=== PATIENT | female | born 1990 | race Caucasian/White ===

== ENCOUNTER 2024-06-11 17:36 | Emergency (ER) | payer OTHER, SELFPAY ==
[2024-06-11 17:42] VITALS: BP 136/72; PULSE 73; RESP 16; TEMP 36.9; O2SAT 100; BMI 29.1
--- NOTE | 2024-06-11 18:28 | ED.GENADULT ---
HPI - General Adult General Chief complaint: Urogenital Problems, Female Stated complaint: pelvic back pain, nausea Time Seen by Provider: 06/11/24 17:56 Source: patient Mode of arrival: ambulatory Limitations: no limitations History of Present Illness HPI narrative: 33-year-old female with a positive test a few days ago, presents today several concerns. Patient states that she has been cramping and spotting for approximately 3 weeks. She will spot for a few days and then it stops and then it comes back again. She describes a lot of pressure in the suprapubic area that also comes and goes. She has discomfort in the left flank that comes and goes. She feels nauseated and has vomited on and off in the last 2 weeks. She denies fevers or chills. She is currently on amoxicillin for a dental implant. She is on day 5. She recently got back from [facility] where she was for the last several weeks. She denies cough. She does complain of a decreased appetite. She complains of constipation. She states that she was having dysuria but this has resolved. she complains of feeling achy all over including headache. 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 She denies other surgeries. Denies daily medication aside from the amoxicillin right now. Past medical history also significant for asthma, migraine headaches, back pain. 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 Unclear what it was. The patient states that she did not have follow-up. Related Data Home Medications ?Medication ?Instructions ?Recorded ?Confirmed amoxicillin .ROUTE 06/11/24 Allergies Allergy/AdvReac Type Severity Reaction Status Date / Time No Known Drug Allergies Allergy Verified 06/11/24 17:45 Review of Systems Status of ROS: Reports: 10 or more systems reviewed and unremarkable except as noted in History and below [facility] Social History Smoking Status: Never smoker How often do you have a drink containing alcohol: monthly or less AUDIT-C Alcohol total score: 1 Non-prescribed substance use: denies use Exam Narrative: Exam Narrative: Well-nourished well-developed patient in no acute distress. Alert and oriented. Answers questions appropriately. Mood and affect are appropriate. Thoughts are goal oriented and rational. No tangential or magical thinking noted. Patient speaks in full sentences without needing to catch her breath. HEENT: Normocephalic atraumatic. Extraocular muscles are intact. Conjunctivae are moist without any icterus noted. Moist mucous membranes. Posterior pharynx is normal. Neck is soft . Cardiovascular: Heart is regular rate and rhythm S1 and S2 are present without any murmurs. Lungs: Clear to auscultation bilaterally no wheezes rhonchi or rales are appreciated. Patient takes deep breaths without any discomfort. Abdomen: Soft and nondistended with normal bowel sounds. No guarding or rebound. No masses or organomegaly appreciated. she complains of mild tenderness in the suprapubic region, left lower quadrant region. She does not have CVA tenderness. Extremities: Bilateral lower extremities are without edema. Skin: Well perfused without any obvious rashes. Const: Vital Signs, click to edit/add: Vital Signs - 24 hr 06/11/24 17:42 06/11/24 20:40 Temperature 98.4 F Pulse Rate 77 Pulse Rate [Pulse Oximeter] 73 Respiratory Rate 16 16 Blood Pressure 114/81 Blood Pressure [Ri ght Upper Arm] 136/72 Pulse Oximetry 100 100 Oxygen Delivery Me thod Room Air Room Air Course Course ED Course: Differential diagnosis is broad includes , UTI, renal stone, influenza, complication of mediastinal mass?. Patient refused COVID/influenza swab. CBCs unremarkable. Normal chemistries. Normal LFTs. Normal lactate. Normal CRP. Normal lipase. Urine has trace blood, 2-5 RBCs. TSH normal. test positive. Ultrasound: No intrauterine visualized. Some free fluid visualized. HCG 367 consistent with at 1-2 weeks gestation. Vital Signs Vital signs: Initial Vital Signs Temperature 98.4 F 06/11/24 17:42 Temperature Source Temporal Artery Scan 06/11/24 17:42 Pulse Rate 73 06/11/24 17:42 Respiratory Rate 16 06/11/24 17:42 Blood Pressure 136/72 06/11/24 17:42 Blood Pressure Mean 93 06/11/24 17:42 Blood Pressure Position Sitting 06/11/24 17:42 Pulse Oximetry 100 06/11/24 17:42 Oxygen Delivery Method Room Air 06/11/24 17:42 Vital Signs Temperature 98.4 F 06/11/24 17:42 Pulse Rate 73 06/11/24 17:42 Respiratory Rate 16 06/11/24 17:42 Blood Pressure 136/72 06/11/24 17:42 Pulse Oximetry 100 06/11/24 17:42 Oxygen Delivery Method Room Air 06/11/24 17:42 Temperature 98.4 F 06/11/24 17:42 Pulse Rate 77 06/11/24 20:40 Respiratory Rate 16 06/11/24 20:40 Blood Pressure 114/81 06/11/24 20:40 Pulse Oximetry 100 06/11/24 20:40 Oxygen Delivery Method Room Air 06/11/24 20:40 Medications Administered Medications: Discontinued Medications Generic Name Dose Route Start Last Admin Trade Name Edwardq PRN Reason Stop Dose Admin Acetaminophen 1,000 mg 06/11/24 18:20 06/11/24 18:43 Acetaminophen 500 Mg Tablet PO 06/11/24 18:21 1,000 mg ONCE ONE Administration Medical Decision Making MDM Narrative Medical decision making narrative: 33-year-old female generally not feeling well. Workup today fairly unremarkable. Potential of 1-2 weeks gestation. Recommend that she follow up in 1-2 days time with primary to repeat hCG levels. Return to ER if pain becomes worse as there is a potential for ectopic . Lab Data Lab results reviewed: Yes I reviewed the patient's lab results Labs: Lab Results 06/11/24 06/11/24 06/11/24 Range/Units 18:35 18:51 21:04 WBC 9.37 (4.50-11.00) K/uL RBC 3.89 L (4.00-5.20) m/uL Hgb 11.4 L (12.0-16.0) gm/dL Hct 34.4 (33.0-51.0) % MCV 88 (80-100) fL MCH 29 (26-34) pg MCHC 33 (32-36) gm/dL RDW Coeff of Pieter 13.2 (11.5-15.5) % Plt Count 364 (140-440) K/uL Neut % (Auto) 62.0 (42.0-72.0) % Lymph % (Auto) 28.7 (20-44) % Summers % (Auto) 7.6 (0.0-11.0) % Eos % (Auto) 1.1 (0.0-7.0) % Baso % (Auto) 0.5 (0.0-3.0) % Neut # (Auto) 5.81 (1.7-7.0) K/uL Lymph # (Auto) 2.69 (0.90-2.90) K/uL Summers # (Auto) 0.70 (0.00-0.90) K/UL Eos # (Auto) 0.10 (0.00-0.50) K/uL Baso # (Auto) 0.05 (0.00-0.30) K/uL Abs Immat Gran (auto) 0.01 (0.00-0.30) K/uL Imm/Tot Granulo (auto) 0.1 % Sodium 137 (135-149) mmol/L Potassium 3.8 (3.6-5.1) mmol/L Chloride 103 (96-114) mmol/L Carbon Dioxide 23 (20-32) mmol/L Anion Gap 11 (7-15) mEq/L BUN 8 (5-24) mg/dL Creatinine 0.5 (0.5-1.5) mg/dL Estimated Creat Clear 134.86 Estimated GFR 129 ml/min Glucose 96 (60-115) mg/dL Lactate 0.5 (0.5-1.9) mmol/L Calcium 9.1 (8.4-10.6) mg/dL Total Bilirubin 0.8 (0.1-1.5) mg/dL Direct Bilirubin 0.3 (0.0-0.5) mg/dL AST 21 (12-35) U/L ALT 19 (4-35) U/L Alkaline Phosphatase 54 (40-150) U/L C-Reactive Protein 0.7 (0.5-1.0) mg/dL Total Protein 7.3 (6.0-8.3) g/dL Albumin 4.4 (3.3-5.0) g/dL Lipase 42 (23-300) U/L TSH 3.290 (0.270-4.20) uIU/mL HCG, Quant 367.68 mIU/mL Urine Color Yellow (Yellow) Urine Appearance Clear (Clear) Urine pH 6.0 (5.0-8.5) Ur Specific [place] 1.025 (1.000-1.030) Urine Protein Negative (Negative) Urine Glucose (UA) Negative (Negative) Urine Ketones Negative (Negative) Urine Blood Trace-intact A (Negative) Urine Nitrite Negative (Negative) Urine Bilirubin Negative (Negative) Urine Urobilinogen 0.2 (0.2-1.0) Ur Leukocyte Esterase Negative (Negative) Urine RBC 2-5 A (0-2) Urine WBC 0-2 (0-5) Ur Squamous Epith Cells Few (None-Few) Urine Bacteria None (None) Urine HCG, Qual POSITIVE H (Negative) Imaging Data US - abdomen: Attestation: I have reviewed the pertinent imaging results. Radiologist's impression: TECHNIQUE: Ultrasound OB pelvis transabdominal and transvaginal. Real-time blackburn-scale imaging of the pelvis was performed. COMPARISON: None. FINDINGS: Intrauterine gestation: No intrauterine gestational sac identified. Slightly irregular appearance of the endometrium, which measures up to 8 mm. Ovaries and adnexa: Right ovarian corpus luteum. Left ovary is unremarkable. No evidence of torsion. Suspicious pelvic fluid collections: Small volume fluid in the cul-de-sac. IMPRESSION: No definite intrauterine identified. No definite sonographic evidence of ectopic . Small volume pelvic free fluid. Findings are overall indeterminate. Short-term ultrasound follow-up in 10-14 days could be considered for more definitive evaluation Discharge Plan Discharge Clinical Impression: Abdominal cramping Patient Disposition: Home, Self-Care Condition: Stable Additional Instructions: Should follow-up 1st thing Thursday morning with a primary care provider or radio dispatcher to repeat hCG levels especially if you are still having cramping. HCG levels are consistent with a very early . It is unclear if the is ectopic or within the uterus. If your pain worsens, you should return to the emergency room immediately. Prescriptions: No Action amoxicillin .ROUTE Follow Up/Referrals: Provider,Not a Local [Primary Care Provider] - Stand Alone Forms: Network Chemistry Info Instructions
[2024-06-11] MEDS: ACETAMINOPHEN 500 MG TABLET 1000 MG PO (18:43)
[2024-06-11 18:46] LABS: Lactate* 0.5 mmol/L (0.5-1.9)
[2024-06-11 18:48] LABS: Basophils Absolute Auto 0.05 K/uL (0.00-0.30); Basophils Percent Auto 0.5 % (0.0-3.0); Eosinophils Percent Auto 1.1 % (0.0-7.0); Hematocrit 34.4 % (33.0-51.0); Hemoglobin* 11.4 gm/dL (12.0-16.0); Immature Granulocytes Abs Auto 0.01 K/uL (0.00-0.30); Immature Granulocytes Pct Auto 0.1 %; Lymphocytes Absolute Auto 2.69 K/uL (0.90-2.90); Lymphocytes Percent Auto 28.7 % (20-44); Mean Corpuscular HGB Conc 33 gm/dL (32-36); Mean Corpuscular Hemoglobin 29 pg (26-34); Mean Corpuscular Volume 88 fL (80-100); Monocytes Percent Auto 7.6 % (0.0-11.0); Neutrophils Absolute Auto 5.81 K/uL (1.7-7.0); Platelet Count* 364 K/uL (140-440); RDW Coefficient of Variation % 13.2 % (11.5-15.5); Red Blood Count 3.89 m/uL (4.00-5.20); White Blood Count* 9.37 K/uL (4.50-11.00)
--- OUTSIDE RECORDS SUMMARY | 2024-06-11 18:50 | XMS_ITS | Clinical Summary ---
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 Max acetaminophen dose: 4000mg in 24 hrs. 100 tablet 02/02/20 20 Active calcium carbonate (TUMS) 200 mg calcium (500 mg) chewable tabletIndications: Gastroesophageal reflux disease, unspecified whether esophagitis present Take 2 tablets by mouth 4 times daily if needed for Heartburn. 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 15 Patch 10/16/19 22 Active 25/iron fum/folic/dha (-1 ORAL) Take by mouth. Active oxyCODONE (ROXICODONE) 5 mg immediate release tablet Take 5 mg by mouth every 4 hours if needed. 02/23/20 22 Active docusate (COLACE) 100 mg capsuleIndications : (spontaneous vaginal delivery) Take 1 Capsule (100 mg) by mouth once daily. 100 Capsule 03/05/20 22 Active Breast Pump PurchaseIndication s: (spontaneous vaginal delivery),Care and examination of lactating mother Electric breast pump for home use. Gestational age at delivery: 40w1d weeks. Reason for need: Lactating mother. Length of need: 99 months (lifetime use) 1 Each 03/05/20 22 Active ibuprofen (ADVIL; MOTRIN) 600 mg tabletIndications: Neck swelling Take 1 Tablet (600 mg) by mouth 3 times daily if needed for Pain. Maximum of 3200 mg in 24 hours. 15 Tablet 05/19/19 23 Active predniSONE (DELTASONE) 20 mg tabletIndications: Exacerbation of asthma, unspecified asthma severity, unspecified whether persistent 60 mg Po x1, then 20 mg Po x 4 days 7 Tablet 02/17/20 23 Active albuterol HFA (PRO-AIR; VENTOLIN; PROVENTIL) 90 mcg/actuation inhalerIndications :Exacerbation of asthma, unspecified asthma severity, unspecified whether persistent Inhale 2 Puffs by mouth 4 times daily if needed for Shortness Of Breath. 2 Each 02/17/20 23 Active prochlorperazine (COMPAZINE) 10 mg tabletIndications: Abdominal pain, unspecified abdominal location Take 1 Tablet (10 mg) by mouth every 8 hours if needed for Nausea/Vomiting. 15 Tablet 05/13/19 24 Active famotidine (PEPCID) 20 mg tabletIndications: Abdominal pain, unspecified abdominal location Take 1 Tablet (20 mg) by mouth two times daily. 40 Tablet 05/13/19 24 Active HYDROcodone-acetam inophen (5-325 mg/tablet)Indicati ons:Abdominal pain, unspecified abdominal location Take 1 Tablet by mouth every 6 hours if needed for Pain. Max acetaminophen dose: 4000 mg in 24 hrs. 8 Tablet 05/13/19 24 Active metoclopramide HCl (REGLAN) 10 mg tabletIndications: Nausea vomiting and diarrhea Take 1 Tablet (10 mg) by mouth every 6 hours if needed for Nausea/Vomiting (headache). 15 Tablet 09/07/19 24 Active ondansetron (ZOFRAN ODT) 8 mg disintegrating tabletIndications: Vomiting and diarrhea Place 1 Tablet (8 mg) on the tongue two times daily. 15 Tablet 12/06/19 24 Active Active Problems Problem Noted Date Diagnosed Date Normal labor 03/04/2022 Supervision of other normal , antepartu m 03/04/2022 Grand multiparity 03/04/2022 (spontaneous vaginal delivery) 03/04/2022 Care and examination of lactating mother 022 Back pain 06/04/2020 Lumbar radiculopathy 06/04/2020 Migraine 07/21/2017 Depression Abdominal pain Resolved Problems Problem Noted Date Diagnosed Date Resolved Date Right lower quadrant pain 06/04/2020 Normal labor 02/01/2020 03/04/2022 (normal spontaneous vaginal delivery) 02/01/2020 03/04/2022 care and examinat ion of lactating mother 02/01/2020 03/04/2022 Depression affecting 09/27/2019 03/04/2022 Overview (02/01/2020): EPDS = 22 at 21 weeks, no SI/HI. 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 09/15/2012 09/18/2018 Nausea with vomiting 08/04/2012 013 Gastroenteritis, acute 08/04/201209/15 Urine ketones 08/04/2012 09/15/2012 uterine contractions, antepartum 08/04/2012 09/15/2012 Asymptomatic bacteriuria in , unspecified as to episode of care 08/04/20122012 Heartburn 08/04/2012 09/15/2012 UTI in 07/21/2012 09/15/2012 Immunizations Immunization Administration Dates Next Due MMR 09/16/2012 Family History Medical History Relation Name Comments Migraines Mother Relation Name Status Comments Mother Social History Tobacco Use Types Packs/Day Years Used Date Smoking Tobacco: Passive Smo ke Exposure - Never Smoker Smokeless Tobacco: Never Tobacco Cessation:Counseling Given: No Comments:not during the Alcohol Use Standard Drinks/Week Comments Not Currently 0 (1 standard drink = 0.6 oz pure alcohol) every other weekend. Reports she does not drink while Social Connections Answer Date Recorded Frequency of Communication with Friends and Fami ly Not on file 07/15/2022 Interpersonal Safety Answer Date Record ed Are you being hit, kicked, p ushed or yelled at (see row info)? 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 Gender Identity Not on file Sexual Orientation Not on file Obstetrics History Para Term AB IAB SAB Ectopic Multiple Livin g Live Births 7 5 5 0 2 1 1 0 0 5 5 Date Outcome GA Total Labor Labor/2nd/3rd Weight Sex Type Anes PTL Claudia A1 A5 Name Clin 2009 Term 41w 3d 3.32 kg (7 lb 5 oz) M Vag-S pont None N Livin g K[place] [place] 40w 0d 2.96 kg (6 lb 8.4 oz) F Vag Livin g 9 9 PAULSON, BABY GIRL Delivery Location:[facility] 2014 IAB 8 SAB 2018 Term 40w 0d F Vag-S pont Epidur al Livin g 2019 Term 40w 0d 3.11 kg (6 lb 13.7 oz) M Vag Epidur al N Livin g Complications:None 2021 Term 40w 1d 2h 44m 2h 33m/0h 04m/0h 07m 3.51 kg (7 lb 11.8 oz) F Vag-S pont None Livin g 8 9 PAULSON, BG Joann Deshpande MD Complications:None Delivery Location:Hospital ( [facility]) Last Filed Vital Signs Vital Sign Reading Time Taken Comments Blood Pressure 98/64 12/06/2023 10:37 PM CDT Pulse 91 12/06/2023 10:37 PM CDT Temperature 36.9 C (98.5 F) 12/06/2023 8:52 PM CDT Respiratory Rate 16 12/06/2023 8:52 PM CDT Oxygen Saturation 100% 12/06/2023 10:37 PM CDT Inhaled Oxygen Concentration - - Weight 79.4 kg (175 lb) 12/06/2023 8:52 PM CDT Height 160 cm (5' 3) 12/06/2023 8:52 PM CDT Body Mass Index 31 12/06/2023 8:52 PM CDT Plan of Treatment Health Maintenance Due Date Last Done Comments Tdap 09/27/2003 Depression screening for age 12+ 2004 Hepatitis C screening for ag e 18-79 2010 Tetanus booster 2012 Pap test for age 21-65 2013 BMI (ht and wt on same day) for age 18+ 11/22/2016 11/23/2015 (IA) Influenza for age 9-49 12/06/2023 COVID-19 vaccine series ( season) 2023 05/27/2021, 04/18/2021 HIV for age 15-65 Completed 09/09/2023, 10/03/2021 Pneumococcal series for age 6-49 Aged Out No longer eligible b ased on patient's age to complete this topic Procedures Procedure Name Priority Date/Time Associated Diagnosis Comments RAPID HIV SCREEN STAT 09/09/2023 2:49 PM CDT from Last 3 Months or Most Recently Relevant to Health Maintenance Results * RAPID HIV SCREEN (09/09/2023 2:49 PM CDT) RAPID HIV SCREEN Non-React larry Non-Reactiv e, Invalid 09/09/2023 4:17 PM CDT [facility] Comment:A NONREACTIVE test r esult means that HIV-1 or HIV-2 antibodies and HIV-1 p24 antigen were not detected in the specimen. Blood BLOOD SPECIMEN / Unknown IV Start / Unknown 09/09/2023 2:49 PM CDT 09/09/2023 3:03 PM CDT Luiz Hylton DO CHEMISTRY Final Result [facility] [address] [place] [address] from Last 3 Months or Most Recently Relevant to Health Maintenance Insurance [employer] [facility] [place] Advance Directives * Full Code (Latest Code Status on File) Date Activated Date Inactivated Comments 06/03/2022 10:29 AM 06/03/2022 2:10 PM Question Answer Comments Code Status Discussion: Not Discussed * Full Code Date Activated Date Inactivated Comments 06/03/2022 10:28 AM 06/03/2022 10:29 AM Question Answer Comments Code Status Discussion: Not Discussed * Full Code Date Activated Date Inactivated Comments 03/04/2022 1:16 PM 03/05/2022 4:48 PM Question Answer Comments Code Status Discussion: Reviewed Preferences * Full Code Date Activated Date Inactivated Comments 06/04/2020 9:20 PM 06/07/2020 4:26 PM Question Answer Comments Code Status Discussion: Discussed * Full Code Date Activated Date Inactivated Comments 02/01/2020 8:51 AM 02/02/2020 5:49 PM Question Answer Comments Code Status Discussion: Not Discussed Care Teams Rubber Belt Splicer Relationship Specialty Start Date End Date Art Navarro MD [address] [place] [address] PCP - General Family Practice 06/02/22 Chacha Whyte CNM [address] [facility] [address] [place], [place] [address] Certified Nurse Internal Control Consultant 08/03/12
--- OUTSIDE RECORDS SUMMARY | 2024-06-11 18:50 | XMS_ITS | Encounter Summary ---
Author Organization [employer] [facility] [employer] Address [address] [place] [address] Care Team Providers Care Director Of Planning Name Role Phone Octaviano Her MD Primary Care Provider [phone] [phone] Reason for Visit * Procedure/Equipment (Routine) - Closed Specialty Diagnoses / Procedures Referred By Contac t Referred To Contact Diagnoses Acute bilateral low back pain with bilateral sciatica (HRC) Procedures MR Lumbar Spine WO IV Cont Xiomara Gabriel APRN, BOTTOM WORKER [address] [place] [address] Phone: tel: fax: Referral ID Status Reason Start Date Expiration Date Visits Re quested Visits Authorized [id number] Closed 05/10/2024 11/06/2024 1 1 Encounter Details Date Type Department Care Team (Latest Contact Info) Description 05/16/2024 1:00 PM SAFETY INTERN Ancillary Procedure [facility] [address] [place] [address] Xiomara Gabriel APRN, BOTTOM WORKER [address] [place] [address] Acute bilateral low back pain with bilateral sciatica (HRC) Social History Tobacco Use Types Packs/Day Years Used Date Smoking Tobacco: Never Smokeless Tobacco: Never Alcohol Use Standard Drinks/Week Comments Not Currently 0 (1 standard drink = 0.6 oz pur e alcohol) occas Humiliation, Afraid, Rape, and Kick questionnair e Answer Date Recorded Fear of Current or Ex-Partner Not on file Emotionally Abused Not on file 05/03/2023 Within the last year, have y ou been kicked, hit, slapped, or otherwise physically hurt by your partner or ex-partner? No 05/03/2023 Within the last year, have y ou been raped or forced to have any kind of sexual activity by your partner or ex-partner? No 05/03/2023 PHQ-2 Answer Date Recorded PHQ-2 Score 4 05/02/2024 Hunger Vital Sign Answer Date Recorded Within the past 12 months, y ou worried that your food would run out before you got the money to buy more. Never true 02/22/20 23 Within the past 12 months, t he food you bought just didn't last and you didn't have money to get more. 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 on file Not on file Not on file documented as of this encounter Plan of Treatment Not on file documented as of this encounter Procedures Procedure Name Priority Date/Time Associated Diagnosis Comments MR LUMBAR SPINE WO IV CONT Routine 05/16/2024 1:16 PM SAFETY INTERN Acute bilateral low back pain with bilateral sciatica (HRC) documented in this encounter Results * MR Lumbar Spine WO IV Cont (05/16/2024 1:16 PM SAFETY INTERN) Anatomical Region Laterality Modality Spine, L-Spine, Skeletal, MSK Ma gnetic Resonance 05/16/2024 12:4 6 PM SAFETY INTERN Impressions 05/17/2024 11:08 AM SAFETY INTERN Mild progression of degenerative findings at L4-L5 and L5-S1 as above without high-grade spinal canal or neural foraminal stenosis. Comment: Many lumbar spine MRI findings are so common that while we may have reported their presence, they must be interpreted with caution and in the context of the clinical situation. The frequency of these findings in adults WITHOUT low back pain increases with age and are as follows: disk degeneration (37-96%), disk height loss (24-84%), disk bulge (30-84%), disk protrusion (29-43%), annular fissure (19- 29%), and facet degeneration (4-83%). Frequency percentages adapted from Dulce W, Silas PH, Jessica B, et al. AJNR AM J Neuroradiol 2015:36:811-16. Narrative 05/17/2024 11:08 AM SAFETY INTERN INDICATION: LBP with sciatica. TECHNIQUE: Routine non-contrast MRI of the lumbar spine. COMPARISON: Lumbar spine MRI 03/16/2019 FINDINGS: Five lumbar-type vertebral bodies. The conus medullaris terminates at the level of T12. Normal cord signal. No acute compression fracture or suspicious osseous lesion. Mild to moderate degenerative disc changes at L5-S1 with mild type I degenerative marrow changes. Mild degenerative disc changes at L4-L5. Slightly increased lipid poor benign hemangioma within the left sacral ala. Grade 1 retrolisthesis at L5-S1. Straightening of the lumbar lordosis. Level by level: T12-L1: No spinal canal or neural foraminal stenosis. L1-2: No spinal canal or neural foraminal stenosis. L2-3: No spinal canal or neural foraminal stenosis. L3-4: No spinal canal or neural foraminal stenosis. L4-5: Disc bulge with annular fissure and central disc protrusion slightly eccentric to the left. Mild facet arthropathy. Mild to moderate spinal canal stenosis. Lateral recess stenosis slightly greater on the left with mild mass effect upon the descending L5 nerve roots. Mild left and slight right foraminal stenosis. L5-S1: Grade 1 retrolisthesis. Posterior disc-osteophyte complex and small central disc protrusion. Mild facet arthropathy. Mild canal stenosis. Moderate left and mild right foraminal stenosis. Procedure Note Trae Gil MD - 05/17/2024 INDICATION: LBP with sciatica. TECHNIQUE: Routine non-contrast MRI of the lumbar spine. COMPARISON: Lumbar spine MRI 03/16/2019 FINDINGS: Five lumbar-type vertebral bodies. The conus medullaristerminates at the level of T12. Normal cord signal. No acute compressionfracture or suspicious osseous lesion. Mild to moderate degenerative discchanges at L5-S1 with mild type I degenerative marrow changes. Milddegenerative disc changes at L4-L5. Slightly increased lipid poor benignhemangioma within the left sacral ala. Grade 1 retrolisthesis at L5-S1.Straightening of the lumbar lordosis. Level by level: T12-L1: No spinal canal or neural foraminal stenosis. L1-2: No spinal canal or neural foraminal stenosis. L2-3: No spinal canal or neural foraminal stenosis. L3-4: No spinal canal or neural foraminal stenosis. L4-5: Disc bulge with annular fissure and central disc protrusion slightlyeccentric to the left. Mild facet arthropathy. Mild to moderate spinalcanal stenosis. Lateral recess stenosis slightly greater on the left withmild mass effect upon the descending L5 nerve roots. Mild left and slightright foraminal stenosis. L5-S1: Grade 1 retrolisthesis. Posterior disc-osteophyte complex and smallcentral disc protrusion. Mild facet arthropathy. Mild canal stenosis.Moderate left and mild right foraminal stenosis. IMPRESSION Mild progression of degenerative findings at L4-L5 and L5-S1 as abovewithout high-grade spinal canal or neural foraminal stenosis. Comment: Many lumbar spine MRI findings are so common that while we mayhave reported their presence, they must be interpreted with caution and inthe context of the clinical situation. The frequency of these findings inadults WITHOUT low back pain increases with age and are as follows: diskdegeneration (37-96%), disk height loss (24-84%), disk bulge (30-84%),disk protrusion (29-43%), annular fissure (19- 29%), and facet degeneration(4-83%). Frequency percentages adapted from Dulce W, Silas PH, Jessica B, etal. AJNR AM J Neuroradiol 2015:36:811-16. us Xiomara Gabriel AUDIT CONSULTANT, BOTTOM WORKER RAD MRI Laura l Result documented in this encounter Visit Diagnoses Diagnosis Acute bilateral low back pain with bilateral sciatica (HRC) documented in this encounter Care Teams Director Of Planning Relationship Specialty Start Date End Date Octaviano Her MD [address] [facility] [place] [address] PCP - General Family Practice 02/05/24 documented as of this encounter
--- OUTSIDE RECORDS SUMMARY | 2024-06-11 18:51 | XMS_ITS | Encounter Summary ---
Author Organization [facility] Address [address] [place] [address] Care Team Providers Care Facility Environmental Technician Name Role Phone Octaviano Her MD Primary Care Provider [phone] Reason for Visit * Reason Onset Date Comments No Show 05/05/2024 Encounter Details Date Type Department Care Team (Latest Contact Info) Description 05/05/2024 3:40 PM RECORD LIBRARIAN Telemedicine [facility] [address] [facility] [place] [id number] Octaviano Her MD [address] [place] [address] Encounters for administrative purposes (Primary Dx) Social History Tobacco Use Types Packs/Day Years [...] Recor ded Last EPDS Total Score 9 04/21/2022 Last EPDS Self Harm Result 0-->never 04/21 Comments No Sex and Gender Information Value Date Recorded Sex Assigned at Not on file Legal Sex Female 10:09 AM RECORD LIBRARIAN Gender Identity Not on file Sexual Orientation Not on file 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 Not on file Not on file documented as of this encounter Progress Notes * Octaviano Her MD - 05/05/2024 3:40 PM CST Patient was called/texted 3 times and was unable to be reached to complete their video/phone visit.Patient will need to reschedule an appointment RD LIBRARIAN documented in this encounter Plan of Treatment Not on file documented as of this encounter Visit Diagnoses Diagnosis Encounters for administrative purposes- Primary Encounters for unspecified administrative purpose documented in this encounter Care Teams Facility Environmental Technician Relationship Specialty Start Date End Date Octaviano Her MD [address] [facility] [place] [address] PCP - General Family Practice 02/05/24 documented as of this encounter
--- OUTSIDE RECORDS SUMMARY | 2024-06-11 18:51 | XMS_ITS | Encounter Summary ---
Author Organization [employer] Address [address] [place] [address] Care Team Providers Care Reversal Print Inspector Name Role Phone Octaviano Her MD Primary Care Provider [phone] Reason for Referral * Consult/Transfer Care (Routine) - New Request Specialty Diagnoses / Procedures Referred By Contac t Referred To Contact Diagnoses Acute bilateral low back pain with bilateral sciatica (HRC) Xiomara Gabriel APRN, TECHNICAL ADMINISTRATIVE ASSISTANT [address] [place] [address] Phone: tel: fax: Referral ID Status Reason Start Date Expiration Date V isits Requested Visits Authorized [id number] New Request 05/02/2024 08/01/2025 1 1 Scheduling Instructions Your clinician has recommended an appointment with [facility]. You can quickly make your appointment online at [email or web address]. You can also call [phone] for help scheduling your appointment. We suggest you call your health insurance company about your coverage and benefits for this appointment. Question Answer Appointment Urgency? Non-Urgent Reason for visit? LBP w/sciatica; MRI ordered R FINISHER * Procedure/Equipment (Routine) - Closed Specialty Diagnoses / Procedures Referred By Contac t Referred To Contact Diagnoses Acute bilateral low back pain with bilateral sciatica (HRC) Procedures MR Lumbar Spine WO IV Cont Xiomara Gabriel APRN, AMNA [address] [place] [address] Phone: tel: fax: Referral ID Status Reason Start Date Expiration Date Visits Re quested Visits Authorized [id number] Closed 05/10/2024 11/06/2024 1 1 R FINISHER Encounter Details Date Type Department Care Team (Late st Contact Info) Description 05/02/2024 1:30 PM FLOOR FINISHER Telemedicine [facility] Care [address] [place] [id number] Xiomara Gabriel APRN, CNP [address] [place] [address] Acute bilateral low back pain with bilateral sciatica (HRC) (Primary Dx); Spasm of muscle; Anxiety (HRC); Recurrent depression (HRC) Social History Tobacco Use Types Packs/Day [...] on file Legal Sex Female 10:09 AM FLOOR FINISHER Gender Identity Not on file Sexual Orientation Not on file 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 Ibuprofen is an anti-inflammatory drug and can be very helpful if taken consistently for short periods of time. During use, reduce the amount of caffeine, alcohol, and other other stomach irritants to reduce therisk of stomach upset. If you have any side effects, let us know. Contraindications to use include kidney issues, heart disease, heart failure, or unmanaged blood pressure, low platelets, allergy, or concurrent blood thinner use. Gabapentin is used for a variety of conditions, but is very helpful for nerve pain and can also assist with anxiety. Swallow tablets with a full glass of water and take with food. Avoid antacids within 2 hours of taking gabapentin. More common side effects can include feeling tired, dizzy, headaches, nausea, movement, or eye issues. Side effects are less with lower doses and mild side effects such as fatigue often improve after 1-2 weeks on the medication. You should have your kidney function monitored periodically on gabapentin. Read the drug insert for all possible drug information. Please start only with evening dosing to get used to the medication. Methocarbamol (Robaxin) is a muscle relaxant. Generally, the medication is well- tolerated but if you experience an allergic reaction, fatigue, heart symptoms, confusion, yellow skin or eyes, neurological symptoms, changes in vision, or other concerning side effects, stop the medication and notify your provider immediately. Possible side effects also include nausea, headache, or dizziness. This medication can be taken with or without food. Do not use this medication with alcohol. Caution with using this medication with other medications that can cause drowsiness such as allergy medication, prescription pain medication, sedatives, or cold medication. Make sure you know how you react to this medicine before you drive, use machines, or do anything else that could be dangerous if you are not alert. Take 750mg three times a day as needed. The dose can range from 500-1500mg 4x/daily as needed if adjustments need to be made. Other treatments: Future options to try include topical pain creams (Biofreeze, [place], Capsacin cream, Aspercreme) Advise abdominal strengthening exercises and focus on hamstring flexibility. Advise good posture in seated position, lumbar support, and getting up to walk around throughout the day. Avoid bed rest; but limit twisting and bending (especially when lifting). Ensure good supportive footwear. Use ice for any inflammation; then switch to heat to improve blood flow to the area. If your symptoms do not improve or worsen, seek re-evaluation. Physical Therapy is advised. Your clinician has recommended an appointment with [facility]. You can quickly make your appointment online at [email or web address]. You can also call [phone] for help scheduling your appointment. We suggest you call your [facility] insurance company about your coverage and benefits for this appointment. If concerning symptoms such as inability to control bowel or bladder, numbness or radiation down leg(s), muscle weakness, fever, weight loss, or worsening symptoms, seek immediate treatment. Your have been referred to PM&R for after your MRI to discuss results in-depth. You can quicklymake your appointment online at [email or web address]. You can also call [phone] for help scheduling your appointment. We suggest you call your health insurance company about your coverageand benefits for this appointment. [facility] is another option if sooner concerns/worsening s ymptoms so exam can be completed. R FINISHER R FINISHER R FINISHER * Attachments The following attachments cannot be sent through Care Everywhere. * Low Back Pain: General Info (Turkish) documented in this encounter Progress Notes * Xiomara Gabriel APRN, AMNA - 05/02/2024 1:30 PM CST Primary Care Virtualist Note This visit completed virtually by: Video. Subjective Tennille Rodriguez is a 33 y.o. female who wishes to discuss Back pain, been going on for 3 yrs has done PT , been ok for a year, and Dec pain came back. Asking for a referral for a specialist . 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 She had sciatica with this. 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 In March, she travelled to [facility] and had difficulty getting off the plane, but did not have a particular new injyry. Her pain is worse with sitting. Every time she sits, she gets pain in her buttocks. Left leg will sometimes go with crossing legs. Last MRI of lumbar region was 2020. Has had MRI previously; no new contraindications. She did get anxiety during procedure last time. LMP: 3 weeks ago; not sexually active PHQ-9=12. She just got out of a difficult relationship HRC gap: Depression, mediastinal mass s/p resection, asthma My chart: Active as of 03/17/24 PDMP reviewed; no concerns Objective She has dropped from 220->165 with increased gym workouts and eating better. She is feeling better from this. General Appearance: alert, well appearing, and in no apparent distress Psychiatric: affect/mood normal and normal judgement/insight Assessment/Plan Diagnoses and all orders for this visit: Acute bilateral low back pain with bilateral sciatica (HRC) - MR Lumbar Spine WO IV Cont; Future - methocarbamol (ROBAXIN) 750 MG tablet; Take 1 Tablet (750 mg) by mouth three times a day as needed. - gabapentin (NEURONTIN) 300 MG capsule; Take 1 Capsule (300 mg) by mouth three times a day as needed. - Physical Medicine & Rehab Consult-Adult Spasm of muscle - methocarbamol (ROBAXIN) 750 MG tablet; Take 1 Tablet (750 mg) by mouth three times a day as needed. Anxiety (HRC) - diazePAM (VALIUM) 5 MG tablet; Pt to bring with to appt. Do not take prior to arrival. MRI staff will instruct when to take med. Recurrent depression (HRC) MDM: Patient with history of LBP injury, ongoing work in a high-risk profession, and new/worsened symptoms. Will proceed with MRI and then follow-up with PM&R. She will make an appt with prior therapist for MH. If ongoing MH concerns and would like to consider pharmacotherapy, she will make another visit with me or her PCP. See Patient Instruction section for further education/details from this appointment. Follow-up plan: Pt to call clinic if not tolerating medication or does not feel medication is working or with worsening symptoms; Urgent Care or Emergency Room if indicated. It was a pleasure to meet with Tennille today. Tennille verbalizes understanding and is in agreement with plan. R FINISHER documented in this encounter Plan of Treatment Scheduled Referrals Name Type Priority Associated Diagnoses Orde r Schedule Physical Medicine & Rehab Consult-Adult Referral Routine Acute bilateral low back pain with bilateral sciatica (HRC) Ordered: 05/02/2024 documented as of this encounter Results * MR Lumbar Spine WO IV Cont (05/16/2024 1:16 PM FLOOR FINISHER) Anatomical Region Laterality Modality Spine, L-Spine, Skeletal, MSK Ma gnetic Resonance 05/16/2024 12:4 6 PM FLOOR FINISHER Impressions 05/17/2024 11:08 AM FLOOR FINISHER Mild progression of degenerative findings at L4-L5 [...] (4-83%). Frequency percentages adapted from Dulce W, Lujuan pablo PH, Jessica B, et al. AJNR AM J Neuroradiol 2015:36:811-16. Narrative 05/17/2024 11:08 AM FLOOR FINISHER INDICATION: LBP with sciatica. TECHNIQUE: Routine non-contrast [...] degeneration(4-83%). Frequency percentages adapted from Dulce W, Lujuvenciomer PH, [place] B, etal. AJNR AM J Neuroradiol 2015:36:811-16. us Xiomara Gabriel AUTOMOTIVE MANUFACTURER, TECHNICAL ADMINISTRATIVE ASSISTANT RAD MRI Laura l Result documented in this encounter Visit Diagnoses Diagnosis Acute bilateral low back pain with bilateral sciatica (HRC)- Primary Spasm of muscle Anxiety (HRC) Anxiety state, unspecified Recurrent depression (HRC) Major depressive disorder, recurrent episode, unspecified Acute bilateral low back pain with bilateral sciatica (HRC) documented in this encounter Care Teams Reversal Print Inspector Relationship Specialty Start Date End Date Octaviano Her MD [address] [place] [address] PCP - General Family Practice 02/05/24 documented as of this encounter
--- OUTSIDE RECORDS SUMMARY | 2024-06-11 18:51 | XMS_ITS | Clinical Summary ---
Author Organization [facility] Address [address] [place] [address] Care Team Providers Care [employer] Member Name Role Phone Octaviano Her MD Primary Care Provider [phone] Source Comments You are receiving this document as you are listed as the primary care provider,follow-up provider, or the patient has been referred to you for consultation.This is in compliance with the Medicare andMedicaid EHR Incentive Program,which states Providers who transition their patient to another setting of careor provider of care or refers their patient to another provider of care shouldprovide summary care record for each transition of care or referral. [facility] Allergies Active Allergy Reactions Criticality Noted Date Comments Prednisone Other, see comments 02/21/2023 States very agitated after done in ER Medications * This document contains information received from the source organization and may not represent a complete record from that organization. ALBUterol sulfate HFA 108 (90 Base) MCG/ACT inhaler Inhale 1-2 Puffs every 4 hours as needed for Wheezing. 1 Each 5 1 Active acetaminophen (TYLENOL) 500 MG tablet Take 2 Tablets (1,000 mg) by mouth every 6 hours. Maximum acetaminophen dose is 4000 mg in 24 hours 100 Tablet 11 3 Active diazePAM (VALIUM) 5 MG tabletIndicati ons:Anxiety (HRC) Pt to bring with to appt. Do not take prior to arrival. MRI staff will instruct when to take med. 1 Tablet 5 Active methocarbamol (ROBAXIN) 750 MG tabletIndicati ons:Acute bilateral low back pain with bilateral sciatica (HRC),Spasm of muscle Take 1 Tablet (750 mg) by mouth three times a day as needed. 30 Tablet 2 5 Active gabapentin (NEURONTIN) 300 MG capsuleIndicat ions:Acute bilateral low back pain with bilateral sciatica (HRC) Take 1 Capsule (300 mg) by mouth three times a day as needed. 90 Capsule 5 05/02/19 26 Active Active Problems Problem Noted Date Diagnosed Date Elevated LFTs 09/12/2023 Mild intermittent asthma without complication Class 1 obesity due to exces s calories without serious comorbidity with body mass index (BMI) of 31.0 to 31.9 in adult 09/12/2023 Unintentional weight loss of more than 2% body weight within 1 week 09/12/2023 Orthostatic dizziness 09/12/2023 History of migraine 09/12/2023 Acute hypokalemia 09/12/2023 Hypomagnesemia 09/12/2023 Abnormal LFTs 09/12/2023 Campylobacter gastroenteritis 09/11/2023 Nausea, vomiting, and diarrhea 09/11/2023 Abdominal cramping, generalized 09/11/2023 Blurry vision 03/01/2023 Subjective visual disturbance of right eye 03/01 Infection of bronchogenic cyst 02/26/2023 Elevated transaminase level 02/21/2023 Pain 02/21/2023 Not immune to rubella 11/29/2021 Bilateral sciatica 01/14/2021 Hair loss 01/14/2021 Recurrent major depressive disorder, in full rem ission 01/14/2021 Iron deficiency anemia 07/17/2020 Recurrent depression 07/16/2020 Anxiety 07/16/2020 Migraine 07/21/2017 Sciatic nerve pain, right Resolved Problems Problem Noted Date Diagnosed Date Resolved Date Dehydration 09/12/2023 03/12/2024 Supervision of other normal , antepartum 11/29/2021 05/13/2022 Obesity in 11/29/2021 023 Limited care in second trimester 11/29/2021 05/13/2022 Lumbar radicular pain 02/19/20212021 Lumbar pain 01/14/2021 08/05/2021 Careplan: [facility] 10/03/2019 04/16/2020 Overview (10/03/2019): This patient is enrolled in the [facility] Program. The program provides patients with support, education, referrals and resources during their . Reason for enrollment: Psychosocial support Next urine drug screen: NA For more information, please contact Reina Medina, [facility] Specialist, at [phone]. Depression affecting 09/27/2019 06/08/2020 Overview (09/27/2019): EPDS = 22 at 21 weeks, no SI/HI. Obesity affecting in third trimester 08/30/2019 06/08/2020 Herniated intervertebral disc of lumbar spine 08/30/1905/26/2019 Atypical squamous cells of u ndetermined significance (ASCUS) on Papanicolaou smear of cervix 08/30/2019 11/20/2020 Overview (09/12/2019): 2017 CCS Review: History: 2017: ASCUS (age 25) 2020: NILM Plan, per ASCCP guidelines: Repeat cytology in 12 months (08/2020) Anemia affecting in third trimester 08/30/1906/08/2020 Overview (08/30/2019): hgb 10.5 at NOB at 17 weeks Chlamydia trachomatis infect ion in mother during , antepartum 05/13/2018 11/11/2018 Careplan: [facility] 05/13/2018 10/18/2018 Overview (05/13/2018): This patient is enrolled in the [facility] Program. The program provides patients with support, education, referrals and resources during their . 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 Oligohydramnios, delivered 09/15/2012 0 06/08/2015 Echogenic focus of bowel of fetus affecting antepartum care of mother 08/27/2012 05/23/2014 Overview (11/26/2016): Echogenic focus of bowel of affecting antepartum care of mother Anemia 07/21/2012 07/21/2017 Rubella in 07/07/2012 017 Echogenic focus of heart of fetus affecting antepartum care of mother 05/31/2012 08/27/2012 Overview (11/08/2015): Referred for LIIUS Intrauterine , 25+6/7 weeks gestation Echogenic intracardiac focus Otherwise nrmal anatomy Normal echocardiogram No additional ultrasound markers of aneuploidy Normal doppler flow study Adequate growth for gestational age Encounter for supervision of normal in multigravida 05/22/2012 05/23/2014 Overview (11/26/2016): Supervision of normal subsequent Late care 05/22/2012 5 Overview (11/08/2015): started care at 23 weeks Threatened 12/16/2010 07/26/19 13 Suicide gesture 02/08/2009 08/30/2019 Overview (08/30/2019): Overview: Hospitalized 02/12 after taking 5 tylenol and 60-70 PNV. Initially presented with vomiting and was sent home, returned the next day to admit to overdose and was admitted for two days. Prescribed Fluoxetine but never took. 06/12/09: Reports mood is stable, I'm better now. Declines psych visit. Abnormal glandular Papanicol aou smear of cervix 01/31/2009 02/04/2017 Overview (11/26/2016): Pap Smear Abnormal Pers Hx Mediastinal mass 05/02/2024 Overview (05/02/2024): This problem was marked as resolved by a user in a SmartForm. Encounters Date Type Department Care Team Description 05/16/2024 1:00 PM SENIOR INFORMATION DEVELOPER Ancillary Procedure [facility] [place] [address] [place] [address] Xiomara Gabriel APRN, LAMP TESTER AND INSPECTOR Acute bilateral low back pain with bilateral sciatica (HRC) 05/05/2024 3:40 PM SENIOR INFORMATION DEVELOPER Telemedicine [facility] [address] [facility] [place] [place] [address] Octaviano Her MD Encounters for administrative purposes (Primary Dx) 05/02/2024 1:30 PM SENIOR INFORMATION DEVELOPER Telemedicine [facility] [address] [facility] [place] [address] Xiomara Gabriel APRN, LAMP TESTER AND INSPECTOR Acute bilateral low back pain with bilateral sciatica (HRC) (Primary Dx); Spasm of muscle; Anxiety (HRC); Recurrent depression (HRC) from Last 3 Months Immunizations Immunization Administration Dates Next Due 9vHPV (Gardasil 9) 08/20/2015,04/14/2015 DTaP 01/30/1997, 4,05/24/1993,1992,1992 Flu Vac Preserv Free (3+yrs) 12/14/2008 H1n1 Miv Sanofi 3+ Yr (Injected) 02/12/2009 HepB Ped/Adol (0-18 yrs) 10/28/1993,1992,0 1992 Hib (ActHIB) 03/21/1994, 4,03/05/1993,1992 Influenza (Flucelvax), Prese rv Free QIV 01/30/2023 Influenza IIV4 (Quadrivalent ) 0.5mL (91208) 12/19/2019,04/14/2015 MMR 09/16/2012,01/30/1997,10/28/1993 Pfizer Monovalent 12+ Purple Top 05/27/2021,04/06 Polio, Unspecified Formulation 8,03/21/1994,05/24/1993,1992,1992 TB Skin Test (PPD) 05/23/2022,05/01/2021, 019 TDAP (BOOSTRIX) 04/14/2015 Td 10/22/2004 Tdap 01/06/2022,07/02/2018 Varicella 06/13/1997 Family History Medical History Relation Name Comments Migraines Mother cardiac defect Nephew congenital; b orn at [place] Cataract Negative Family History Glaucoma Negative Family History Macular Degeneration Negative Family History Retinal Detachment Negative Family History Relation Name Status Comments Father Alive Mother Alive Brother Alive Maternal Grandfather Maternal Grandmother Alive Nephew Paternal Grandfather Paternal Grandmother Sister 1 Alive Sister 2 Alive Sister 3 Alive Social History Tobacco Use Types Packs/Day Years Used Date Smoking Tobacco: Never Smokeless Tobacco: Never Tobacco Cessation:Counseling Given: Not Answered Alcohol Use Standard Drinks/Week Comments Not Currently [...] on file Legal Sex Female 10:09 AM SENIOR INFORMATION DEVELOPER Gender Identity Not on file Sexual Orientation Not on file 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 Not on file Not on file Not on file Last Filed Vital Signs Vital Sign Reading Time Taken Comments Blood Pressure 98/67 02/02/2024 12:09 PM CDT Pulse 96 02/02/2024 12:09 PM CDT Temperature 36.7 C (98.1 F) 02/02/2024 12:09 PM CDT Respiratory Rate 14 02/02/2024 12:09 PM CDT Oxygen Saturation 98% 02/02/2024 12:09 PM CDT Inhaled Oxygen Concentration - - Weight 78.9 kg (174 lb) 02/01/2024 4:20 PM CDT Height 160 cm (5' 2.99) 09/11/2023 5:22 PM CDT Body Mass Index 30.83 09/11/2023 5:22 PM CDT Plan of Treatment Health Maintenance Due Date Last Done Comments Adult Preventive Visit 2010 Pneumococcal (1 of 2 - PCV) 09/27/2011 HPV Vaccine (3 - 3-dose series) 11/12/2015 08/20/2015, 04/14/2015 COVID-19 Vaccine ( - season) 2023 05/27/2021, 04/18/2021 Influenza (#1) 2023 01/30/2023, 12/05, 04/14/2015, Additional history exists Asthma ACT (score of 20 or higher) 05/02/2025 05/02/2024, 04/22/2022, 07/21/2017, Additional history exists Cervical Cancer Screening 01/31/20292023, 11/09/2020, 08/30/2019, Additional history exists DTaP/Tdap/Td (9 - Tdap) 01/07/2032 01/07/20, 07/02/2018, 04/14/2015, Additional history exists Colonoscopy 06/03/2032 06/03/2022 (Completed) Zoster/Shingles (1 of 2) 2042 HepB Completed 10/28/1993, 10/06, 1992 Hib Completed 03/21/1994, 05/07, 03/05/1993, Additional history exists IPV (Polio) Completed 07/03/1997, 03/06, 05/24/1993, Additional history exists Hep C Screening (Preventive Services) Completed 10/03/2021, 04/16/2018, 08/27/2012, Additional history exists HIV Screening (Preventive Services) Completed 09/09/2023, 03/01/2023, 10/03/2021, Additional history exists HepA Aged Out No longer eligi ble based on patient's age to complete this topic MCV4 Aged Out No longer eligi ble based on patient's age to complete this topic Meningococcal B Aged Out No longer el igible based on patient's age to complete this topic Procedures Procedure Name Priority Date/Time Associated Diagnosis Comments MR LUMBAR SPINE WO IV CONT Routine 05/16/2024 1:16 PM SENIOR INFORMATION DEVELOPER Acute bilateral low back pain with bilateral sciatica (HRC) CYTOLOGY (PAP) Routine 02/01/2024 4:33 PM CDT Screening for malignant neoplasm of cervix HIV 1/2 AG/AB 4TH GEN Routine 03/01/2023 4:24 PM SENIOR INFORMATION DEVELOPER HEPATITIS C ANTIBODY, WITH REFLEX Routine 10/03/2021 3:35 PM CDT Obesity affecting in second trimester Encounter for supervision of other normal in second trimester from Last 3 Months or Most Recently Relevant to Health Maintenance Results * MR Lumbar Spine WO IV Cont (05/16/2024 1:16 PM SENIOR INFORMATION DEVELOPER) Anatomical Region Laterality Modality Spine, L-Spine, Skeletal, MSK Ma gnetic Resonance 05/16/2024 12:4 6 PM SENIOR INFORMATION DEVELOPER Impressions 05/17/2024 11:08 AM SENIOR INFORMATION DEVELOPER Mild progression of degenerative findings at L4-L5 [...] facet degeneration (4-83%). Frequency percentages adapted from Zeynep Brownetmer PH, Jessica B, et al. AJNR AM J Neuroradiol 2015:36:811-16. Narrative 05/17/2024 11:08 AM SENIOR INFORMATION DEVELOPER INDICATION: LBP with sciatica. TECHNIQUE: Routine non-contrast [...] degeneration(4-83%). Frequency percentages adapted from Dulce W, Luetmer PH, Jessica B, etal. AJNR AM J Neuroradiol 2015:36:811-16. Xiomara Gabriel APRN, LAMP TESTER AND INSPECTOR RAD MRI Laura l Result * PAP Test (02/01/2024 4:33 PM CDT) Case Report Pap Case: [id number] Authorizing Provider: Oli Ayala MD Collected: 02/01/2024 1633 Ordering Location: [place] [address] Received: 02/01/2024 1712 Obstetrics/Gynec ology First Screen: Diana Mejia Specimen: Pap Test, Routine, Cervix/Endocervix 02/29/2024 10:44 AM SENIOR INFORMATION DEVELOPER [facility] Pap Specimen Adequacy Satisfactory for evaluation, endocervical/cote sformation zone component absent. 02/29/2024 10:44 AM SENIOR INFORMATION DEVELOPER [facility] Pap Interpretation (NILM) Negative for intraepithelial lesion or malignancy. 02/29/2024 10:44 AM SENIOR INFORMATION DEVELOPER [facility] at 1044 SENIOR INFORMATION DEVELOPER Pap Other Findings Fungal organisms morphologically consistent with Pinky spp. 02/29/2024 10:44 AM SENIOR INFORMATION DEVELOPER [facility] Pap Disclaimer The Pap test is a screening test to aid in the detection of cervical and vaginal cancers and their precursor lesions. It is not a diagnostic procedure and should not be used as the sole means of detecting malignancy. Both false-positive and false-negative results may occur. 02/29/2024 10:44 AM SENIOR INFORMATION DEVELOPER [facility] Gross Description The specimen is received in SurePath fixative and properly labeled. 1 Pap-stained SurePath slide is prepared. 02/29/2024 10:44 AM SENIOR INFORMATION DEVELOPER [facility] Embedded Images 10:44 AM SENIOR INFORMATION DEVELOPER [facility] Other Specimen Type ENTIRE ENDOCERVIX / Unknown 02/01/2024 4:33 PM CDT 02/01/2024 5:13 PM CDT Comment:LMP: Patient's last menstrual period was 01/19/2024 (approximate). us Oli Ayala MD LAB PATHOLOGY Final Result Performing Organization Address City/State/[facility] Co de Phone Number [facility] [address] * HIV 1/2 Ag/Ab 4th Generation (03/01/2023 4:24 PM SENIOR INFORMATION DEVELOPER) HIV 1/2 Antigen/Antib pamela (4th generation) Negative (Non Reactive) Negative (Non Reactive) 03/01/2023 6:15 PM SENIOR INFORMATION DEVELOPER [facility] Comment:HIV-1 p24 Antigen an d HIV-1/HIV-2 Antibody not detected Blood Venipuncture / Unknown 03/01/2023 4:24 PM SENIOR INFORMATION DEVELOPER 03/01/2023 5:42 PM SENIOR INFORMATION DEVELOPER us Gary Barron MD LAB_1 Final Result Performing Organization Address [facility] Co de Phone Number [facility] [address] * Hepatitis C Antibody, with Reflex (10/03/2021 3:35 PM CDT) Hepatitis C Antibody Negative (Non Reactive) Negative (Non Reactive) 10/03/2021 10:37 PM CDT [facility] Comment:Antibodies to HCV no t detected. Does not exclude the possiblity of exposure to HCV. Blood Venipuncture / Unknown 10/03/2021 3:35 PM CDT 10/03/2021 3:35 PM CDT Jorge Finch MD LAB_1 Final Resul t Performing Organization Address [facility] Co de Phone Number [facility] [address] from Last 3 Months or Most Recently Relevant to Health Maintenance Insurance [address] [place], [place] [address] Advance Directives * Full Code (Latest Code Status on File) Date Activated Date Inactivated Comments 09/11/2023 5:39 PM 09/13/2023 7:11 PM * Full Code Date Activated Date Inactivated Comments 02/21/2023 4:03 PM 03/04/2023 6:42 PM Care Teams [employer] Member Relationship Specialty Start Date End Date Octaviano Her MD [address] [id number] PCP - General Family Practice 02/05/24
--- OUTSIDE RECORDS SUMMARY | 2024-06-11 18:51 | XMS_ITS | Clinical Summary ---
Author Organization [facility] Address [address] [address] Phone Care Team Providers Care Tv Host Name Role Phone Art Navarro MD Primary Care Provider [phone] Allergies No known active allergies Medications acetaminophen (TYLENOL) 325 MG tablet Take 650 mg by mouth every six hours as needed for Pain . Limit acetaminophen to 4000 mg per day from all sources. Active ondansetron (Zofran) 4 MG tablet Take 1 Tablet by mouth every eight hours. 20 Tablet 3 Active levonorgestrel (Mirena) 20 MCG/DAY 52 mg intra uterine device Insert 1 Each into the uterus. 4 06/23/19 32 Active lidocaine (Lidoderm) 5 % patch Apply to intact skin to cover most painful area for max 12hr per 24hr period. 2 Active metroNIDAZOLE (FLAGYL OR) Take by mouth. Act larry Social History Tobacco Use Types Packs/Day Years Used Date Smoking Tobacco: Never Smokeless Tobacco: Never Tobacco Cessation:Counseling Given: Not Answered Alcohol Use Standard Drinks/Week Comments Not Currently 0 (1 standard drink = 0.6 oz pur e alcohol) [facility] Custom IPV Answer Date Recorded Do you feel UNSAFE in any of your personal relationships with your family members or any other acquaintances? No 2023 Comments No Sex and Gender Information Value Date Recorded Sex Assigned at Not on file Legal Sex Female 1:57 PM CDT Gender Identity Not on file Sexual Orientation Not on file Obstetrics History Last Filed Vital Signs Vital Sign Reading Time Taken Comments Blood Pressure 125/76 08/17/2023 10:29 AM CDT Pulse 76 08/17/2023 10:29 AM CDT Temperature 36.7 C (98 F) 08/17/2023 7:24 AM CDT Respiratory Rate 16 08/17/2023 7:24 AM CDT Oxygen Saturation 98% 08/17/2023 7:24 AM CDT Inhaled Oxygen Concentration - - Weight 95.3 kg (210 lb) 06/29/2022 9:56 PM CDT Height 160 cm (5' 3) 06/29/2022 9:56 PM CDT Body Mass Index 37.2 06/29/2022 9:56 PM CDT Plan of Treatment Health Maintenance Due Date Last Done Comments Cervical Cancer Screening 1992 Last pap w/ HPV Testing 1992 Last pap w/o HPV Testing 1992 Hepatitis B Vaccine (Standin g Order) (1 of 3 - 19+ 3-dose series) 09/27/2011 PERTUSSIS (Standing Order) 09/27/2011 TETANUS (Standing Order) 09/27/2011 COVID-19 Vaccine ( - 2023-2 5 season) 2023 Influenza Vaccine Seasonal (Standing Order) (#1) 2023 HPV Vaccine (Standing Order) Aged Out No longer eligible based on patient's age to complete this topic Pneumococcal/PCV20 Vaccine: Pediatrics (2-5 yrs) and At-Risk Patients (6-49 yrs) (Standing Order) Aged Out No longer eligible b ased on patient's age to complete this topic Insurance [facility] Care Teams Tv Host Relationship Specialty Start Date End Date Art Navarro MD [address] [facility] [address] [place] [id number] PCP - General Family Medicine 08/17/23
[2024-06-11 18:56] LABS: Slide Review Reflex No
[2024-06-11 19:06] LABS: Albumin* 4.4 g/dL (3.3-5.0); Chloride* 103 mmol/L (96-114); Sodium* 137 mmol/L (135-149)
[2024-06-11 19:07] LABS: Potassium* 3.8 mmol/L (3.6-5.1)
[2024-06-11 19:09] LABS: Blood Urea Nitrogen* 8 mg/dL (5-24); Creatinine* 0.5 mg/dL (0.5-1.5); Est. Creatinine Clearance* 134.86; Estimated Glomerular Filt Rate 129 ml/min
[2024-06-11 19:10] LABS: Alanine Aminotransferase* 19 U/L (4-35); Alkaline Phosphatase* 54 U/L (40-150); Anion Gap 11 mEq/L (7-15); Aspartate Amino Transferase* 21 U/L (12-35); Bilirubin Direct* 0.3 mg/dL (0.0-0.5); Bilirubin Total* 0.8 mg/dL (0.1-1.5); Calcium* 9.1 mg/dL (8.4-10.6); Carbon Dioxide* 23 mmol/L (20-32); Glucose* 96 mg/dL (60-115); Lipase* 42 U/L (23-300); Total Protein* 7.3 g/dL (6.0-8.3)
[2024-06-11 19:12] LABS: Appearance Urine Clear (Clear); Bilirubin Urine Negative (Negative); Blood Urine Trace-intact (Negative); Color Urine Yellow (Yellow); Glucose Urine Negative (Negative); Ketones Urine Negative (Negative); Leukocyte Esterase Urine Negative (Negative); Nitrite Urine Negative (Negative); Protein Urine Negative (Negative); Specific Gravity Urine 1.025 (1.000-1.030); Urobilinogen Urine 0.2 (0.2-1.0)
[2024-06-11 19:13] LABS: C Reactive Protein* 0.7 mg/dL (0.5-1.0)
[2024-06-11 19:16] LABS: WBC Urine 0-2 (0-5)
[2024-06-11 19:17] LABS: Squamous Epithelial Cell Urine Few (None-Few)
[2024-06-11 19:41] LABS: Ur HCG Qualitative* POSITIVE (Negative)
[2024-06-11 20:40] VITALS: BP 114/81; PULSE 77; RESP 16; O2SAT 100
== END 2024-06-11 21:58 | disposition home or self-care (01) ==
PROVIDERS: Emergency Provider Family Medicine
DX: R10.9 Unspecified abdominal pain (principal)
CPT/HCPCS: 36415; 76817; 80048; 80076; 81001; 81025; 83605; 83690; 84443; 84702; 85025; 86140; 87086; 87631; 93976; 99284; A9270